=== PATIENT | male | born 1985 ===

== ENCOUNTER 2017-12-05 20:44 | Emergency (ER) | payer OTHER, MEDICAID ==
[2017-12-05 21:18] VITALS: PULSE 75
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
[2017-12-05 23:14] VITALS: RESP 20; TEMP 98
[2017-12-05 23:23] VITALS: BP 123/72; O2SAT 99
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
== END 2017-12-05 23:21 | disposition home or self-care (01) ==
LOC: ED 20:44 → MERGE 20:44 → ED 23:21
DX: S73.102A Unspecified sprain of left hip, initial encounter (principal); S93.602A Unspecified sprain of left foot, initial encounter; V49.49XA Driver injured in collision with other motor vehicles in traffic accident, initial encounter; Y92.410 Unspecified street and highway as the place of occurrence of the external cause